=== PATIENT | female | born 1975 | race Two or more races ===

== ENCOUNTER 2021-07-13 23:10 | Emergency (ER) | payer OTHER ==
[~2021-07-13] VITALS: Ht 152.4 cm; Wt 55.5 kg
--- NOTE | 2021-07-14 01:15 | PHYS DOC ---
Past Medical History Past Surgical History: Tubal ligation General Adult EDM: Chief Complaint: WEAKNESS/GENERALIZED HPI: HPI: Patient is a 46 year old female here with multiple complaints. She reports that yesterday she began experiencing dizziness symptoms, which she describes as a sense of motion, mostly when she turns her head from side to side or rolls over in bed. She described a sense of motion. She does report some mild tinnitus. Denies hearing loss. She denies head injury, headache, syncope, numbness, tingling, motor weakness. She denies chest pain, palpitations, dyspnea. She denies abdominal pain. She does report some mild nausea, no vomiting. She has previously experienced the same symptoms, she was seen at [facility] in the ER, she was given IV fluids. She is unsure what diagnosis she may have been given. The patient speaks little [place] Island[place], her daughter helps translate. I did use the [employer] for formal translation services, but they were not able to find her language or dialect to assist with this. She does report generalized fatigue and malaise for the past few days as well. Denies fevers or chills. She does work in a factory, and she is concerned about possibly curly Covid, though she admits to being fully vaccinated. Review of Systems: Review of Systems: Constitutional: Denies fever or chills. [] Eyes: Denies change in visual acuity. Denies vision loss. HENT: Denies nasal congestion or sore throat. Reports tinnitus. Denies hearing loss. Respiratory: Denies cough or shortness of breath. [] Cardiovascular: Denies chest pain or edema. [] GI: Denies abdominal pain, or vomiting. She reports mild nausea. : Denies Jean-Claude symptoms or incontinence. Musculoskeletal: Denies back pain or joint pain. [] Integument: Denies rash. [] Neurologic: Denies headache, focal weakness or sensory changes. She reports vertigo and dizziness. Denies syncope. Psychiatric: Denies depression or anxiety. [] Heart Score: C/O Chest Pain: No Risk Factors: Risk Factors: DM, Current or recent (<one month) smoker, HTN, HLP, family history of CAD, obesity. Risk Scores: Score 0 - 3: 2.5% MACE over next 6 weeks - Discharge Home Score 4 - 6: 20.3% MACE over next 6 weeks - Admit for Clinical Observation Score 7 - 10: 72.7% MACE over next 6 weeks - Early Invasive Strategies Physical Exam: PE: Constitutional: Well developed, well nourished, no acute distress, non-toxic appearance. [] HENT: Normocephalic, atraumatic, bilateral external ears normal, oropharynx moist, no oral exudates, nose normal. TMs are clear bilaterally. Eyes: PERRL, EOMI, conjunctiva normal, no discharge. [] Neck: Normal range of motion, no tenderness, supple, no stridor. No meningismus. Trachea is midline. Cardiovascular:Heart rate regular rhythm, was 2 radial and +2 posterior tibial pulses bilaterally. Lungs & Thorax: Bilateral breath sounds clear to auscultation [] Abdomen: Abdomen soft, nondistended, nontender to palpation, normal bowel sounds Skin: Warm, dry, no erythema, no rash. [] Back: No tenderness, no CVA tenderness. [] Extremities: No tenderness, no cyanosis, no clubbing, ROM intact, no edema. No calf tenderness. Neurologic: She is awake, alert, oriented x3, cranial nerves II through XII grossly intact. 5 out of 5 motor strength all 4 extremities. No pronator drift, no dysmetria, no limb ataxia, speech is clear and fluent, sensation is grossly intact, gait is steady Psychologic: Affect normal, judgement normal, mood normal. [] Current Patient Data: Vital Signs: Vital Signs Date Time Temp Pulse Resp B/P (MAP) Pulse Ox O2 Delivery O2 Flow Rate FiO2 07/14/21 00:56 97.7 57 12 140/83 (102) 100 Room Air 97.7 EKG: EKG: EKG is interpreted at 0146 Rhythm is sinus bradycardia Rate is 55 bpm [place] is normal No STEMI Radiology/Procedures: Radiology/Procedures: IMAGING REPORT Signed PATIENT: MARILYN AMAYA ACCOUNT: [id number] : 1975 LOCATION: ER AGE: 46 SEX: F EXAM STATUS: REG ER ORD. PHYSICIAN: BEVERLY FAJARDO DO REASON: vertigo PROCEDURE: CT HEAD WO CONTRAST EXAM: CT Head without IV contrast CLINICAL HISTORY: vertigo COMPARISON: None. TECHNIQUE: Routine CT of the head without contrast. PQRS compliance statement - One or more of the following individualized dose reduction techniques were utilized for this study: 1. Automated exposure control 2. Adjustment of the mA and/or kV according to patient size 3. Use of iterative reconstruction technique FINDINGS: There is no evidence of hemorrhage, mass or extra-axial fluid collection. Govea-white differentiation is maintained with no evidence of edema. There is no mass effect or shift of the intracranial structures. The ventricles, basilar cisterns and cortical sulci are normal in size and configuration for the patients stated age. The cerebellum and brainstem are unremarkable. The calvarium demonstrates no evidence of fracture or focal lesion. There is normal aeration of the visualized paranasal sinuses and mastoid air cells. The visualized portions of the orbits are normal. IMPRESSION: No evidence for acute intracranial process. Electronically signed by: Leighton Brock MD (07/14/2021 3:28 AM) [facility] DICTATED and SIGNED BY: LEIGHTON BROCK MD DATE: 07/14/21 [id number] 0 Course & Med Decision Making: Course & Med Decision Making Pertinent Labs and Imaging studies reviewed. (See chart for details) The patient is given IV fluids, IV Zofran and p.o. meclizine. She is resting comfortably. She reports no further dizziness or vertigo symptoms. She has a nonfocal neurologic exam. CT head is unremarkable/negative for any acute process. Emergency department work-up is unremarkable for any acute life- threatening process. I discussed all of the findings, differential diagnosis and plan of care with the patient. She is feeling much better, she is anxiously awaiting discharge home. She requests a work note for today, this is provided. Home care instructions are given. Strict return precautions are given. I recommend she follow-up with a primary care physician for routine care and follow-up of this condition as well. Alfonzo Disclaimer: Alfonzo Disclaimer: This electronic medical record was generated, in whole or in part, using a voice recognition dictation system. Departure Departure Impression: Primary Impression: Vertigo Disposition: HOME / SELF CARE / HOMELESS Condition: STABLE Patient Instructions: Vertigo Additional Instructions: Use the medications as needed/as directed. Stand up slowly, avoid any strenuous activity or heavy lifting. Drink plenty of clear fluids. Return to the ER for chest pain, shortness of breath, abdominal pain, uncontrolled vomiting, dehydration, fever 100.4 or higher, if you have sustained any head injury, loss of consciousness, any focal weakness or other concerns. Contact your primary care physician for follow-up. Scripts Meclizine Hcl (MECLIZINE HCL) 25 Mg Tablet 25 MG PO PRN TID PRN for dizziness or vertigo, #20 TAB dizziness Prov: BEVERLY FAJARDO DO 07/14/21 Ondansetron Hcl (ONDANSETRON HCL) 4 Mg Tablet 1 TAB PO PRN Q6HRS for vomiting, #20 TAB 1 Refill Prov: BEVERLY FAJARDO DO 07/14/21 BEVERLY FAJARDO DO Jul 14, 2021 01:15
--- NOTE | 2021-07-14 01:52 | EKG ---
[facility] [address] [place] [address] Test Date: 2021-07-14 Test Time: 01:44:11 Pat Name: MARILYN AMAYA Department: Room: Gender: F Java Web Architect: : 1975 Requested By: BEVERLY FAJARDO Order Number: [id number] Reading MD: Juan Jose Jasmine Measurements Intervals [place] Rate: 55 P: FL: QRS: 51 QRSD: 84 T: 24 QT: 436 QTc: 419 Interpretive Statements SINUS RHYTHM Electronically Signed On 07-16-2021 15:09:39 TECHNICAL SUPPORT REPRESENTATIVE by Juan Jose Jasmine
[2021-07-14 02:28] LABS: BASO % 0 % (0-3); EOS # 0.2 x10^3/uL (0.0-0.7); EOS % 4 % (0-3); HEMATOCRIT 38.6 % (36.0-47.0); HEMOGLOBIN 12.6 g/dL (12.0-15.5); LYMPH # 1.6 x10^3/uL (1.0-4.8); LYMPH % 29 % (24-48); MEAN CORPUSCULAR HEMOGLOBIN 29 pg (25-35); MEAN CORPUSCULAR HGB CONC 33 g/dL (31-37); MEAN CORPUSCULAR VOLUME 89 fL (79-100); MONO # 0.6 x10^3/uL (0.0-1.1); MONO % 10 % (0-9); NEUT % 56 % (31-73); PLATELET COUNT 264 x10^3/uL (140-400); RED BLOOD COUNT 4.36 x10^6/uL (3.50-5.40); RED CELL DISTRIBUTION WIDTH 13.7 % (11.5-14.5); WHITE BLOOD COUNT 5.4 x10^3/uL (4.0-11.0)
[2021-07-14] MEDS: IV NORMAL SALINE 1000ML BAG 1,000 ML IV ONE (02:44)
[2021-07-14] MEDS: ONDANSETRON PF 4 MG/2 ML VIAL. IVP ONE (02:45)
[2021-07-14] MEDS: MECLIZINE HCL 12.5 MG TABLET. PO ONE (02:46)
[2021-07-14 02:56] LABS: BILIRUBIN,URINE NEGATIVE (NEG); CLARITY,URINE CLEAR; COLOR,URINE YELLOW; NITRITE,URINE NEGATIVE (NEG); PH,URINE 6.5 (<5.0-8.0); PROTEIN,URINE NEGATIVE (NEG-TRACE); UROBILINOGEN,URINE 0.2 mg/dL (0.2 mg/dL)
[2021-07-14 03:19] LABS: BACTERIA,URINE 0 /HPF (0-FEW); WBC,URINE 0 /HPF (0-4)
--- NOTE | 2021-07-14 03:30 | RAD ---
EXAM: CT Head without IV contrast CLINICAL HISTORY: vertigo COMPARISON: None. TECHNIQUE: Routine CT of the head without contrast. PQRS compliance statement - One or more of the following individualized dose reduction techniques wer e utilized for this study: 1. Automated exposure control 2. Adjustment of the mA and/or kV according to patient size 3. Use of iterative reconstruction technique FINDINGS: There is no evidence of hemorrhage, mass or extra-axial fluid collection. Govea-white differentiation is maintained with no evidence of edema. There is no mass effect or shift of the intracranial structures. The ventricles, basilar cisterns and cortical sulci are normal in size and configuration for the yefri ents stated age. The cerebellum and brainstem are unremarkable. The calvarium demonstrates no evidence of fracture or focal lesion. There is normal aeration of the visualized paranasal sinuses and mastoid air cells. The visualized portions of the orbits are normal. IMPRESSION: No evidence for acute intracranial process. Electronically signed by: Leighton Boateng MD (07/14/2021 3:28 AM) [facility]
[2021-07-14 04:02] LABS: CALCIUM 7.8 mg/dL (8.5-10.1); CREATININE 0.7 mg/dL (0.6-1.0); GFR 90.5; POTASSIUM 3.6 mmol/L (3.5-5.1)
[2021-07-14 04:08] LABS: ALBUMIN 3.1 g/dL (3.4-5.0); ALBUMIN/GLOBULIN RATIO 0.8 (1.0-1.7); TOTAL BILIRUBIN 0.4 mg/dL (0.2-1.0)
[2021-07-14 05:30] VITALS: BP 110/66
[2021-07-14] MEDS ORDERED: MECL-75 PO (06:17)
[2021-07-14] MEDS ORDERED: ONDA-84 PO (06:17)
--- NOTE | 2021-07-15 10:04 | NUR ---
Informed patient of negative covid results.
== END 2021-07-14 07:10 | disposition home or self-care (01) ==
LOC: ER 23:10
DX: R42 Dizziness and giddiness (principal); Z20.822 Contact with and (suspected) exposure to COVID-19; H93.19 Tinnitus, unspecified ear; R11.0 Nausea; Z98.51 Tubal ligation status
CPT/HCPCS: 36415; 70450; 80053; 81001; 81025; 83690; 83735; 84484; 85025; 87426; 93005; 96361; 96374; 99285; J2405; J7030; J8597; U0003; U0005